=== PATIENT | female | born 1985 | race Two or more races ===

== ENCOUNTER 2016-06-26 10:25 | Emergency (ER) | payer MEDICAID, OTHER ==
[~2016-06-26] VITALS: Ht 149.9 cm; Wt 78.5 kg
[2016-06-26 11:28] LABS: Urine Bilirubin Negative (Negative); Urine Blood Negative /uL (Negative); Urine Color Yellow (Yellow); Urine Glucose Normal (Normal); Urine Ketone Negative (Negative); Urine Mucus FEW (None Seen); Urine Nitrite Negative (Negative); Urine RBC <1 /hpf (0 - 4); Urine Squamous Epithelial Cell MOD /hpf (<5); Urine Urobilinogen Normal (Negative); Urine pH 6.5 (5.0-8.0)
[2016-06-26 12:40] LABS: Basophils # (auto) 0.1 uL; Eosinophils # (auto) 0.2 uL; Hematocrit 41.8 % (36.0-46.0); Hemoglobin 13.7 g/dL (12.2-16.2); Lymphocytes # (auto) 1.8 uL; Lymphocytes % (auto) 18.5 % (10.0-50.0); Mean Corpuscular Hgb Conc. 32.7 g/dL (32.0-36.0); Mean Corpuscular Volume 88.6 fL (80.0-100.0); Mean Platelet Volume 8.2 fL (7.4-10.4); Monocytes # (auto) 0.5 uL; Monocytes % (auto) 5.1 % (0.0-12.0); Neutrophils # (auto) 7.1 uL; Neutrophils % (auto) 73.4 % (37.0-80.0); Platelet Count (auto) 389 10^3/uL (140-450); Red Cell Distribution Width 13.8 % (11.6-16.0); White Blood Cell 9.6 10^3/uL (4.4-10.8)
[2016-06-26 13:07] LABS: Albumin 3.8 g/dL (3.4-5.0); Anion Gap 10 (5-15); BUN/Creatinine Ratio 20.7; Blood Urea Nitrogen 18 mg/dL (7-18); Calcium 8.3 mg/dL (8.5-10.1); Carbon Dioxide 25 mmol/L (21-32); Chloride 107 mmol/L (98-107); GFR African American 97 mL/min; GFR Non-African American 80 mL/min; Glucose 92 mg/dL (74-106); Potassium 3.8 mmol/L (3.5-5.1); Salicylate 3.6 mg/dL (2.8-20.0); Sodium 142 mmol/L (136-145)
[2016-06-26 13:10] LABS: Alkaline Phosphatase 95 U/L (45-117); Aspartate Aminotransferase 15 U/L (15-37); Bilirubin, Total 0.2 mg/dL (0.2-1.0); Total Protein 7.7 g/dL (6.4-8.2)
[2016-06-26 13:15] LABS: Acetaminophen < 2.0 ug/mL (10-30)
[2016-06-26] MEDS ORDERED: SODIUM CHLORIDE 0.9% 1,000 ML IVB ONE (14:25)
[2016-06-26 14:48] VITALS: BP 139/93
== END 2016-06-26 15:09 | disposition home or self-care (01) ==
LOC: ER 10:29
DX: F60.0 Paranoid personality disorder (principal); F22 Delusional disorders
CPT/HCPCS: 36415; 80053; 80320; 80329; 81001; 81025; 85025; 96360; 99284; G0434; J7030

== ENCOUNTER 2016-07-16 11:30 | Emergency (ER) | payer MEDICAID ==
[~2016-07-16] VITALS: Ht 149.9 cm; Wt 94.3 kg
[2016-07-16 11:47] VITALS: BP 144/90
[2016-07-16] MEDS ORDERED: methylPREDNISolone SOD SUCC 125 MG/2 ML VL IM ONE (13:15)
[2016-07-16] MEDS ORDERED: IPRATROPIUM BROM 0.5 MG/2.5ML INH SOL NEB ONE (13:15)
[2016-07-16] MEDS ORDERED: ALBUTEROL SULF 2.5 MG/0.5ML(0.5%) NEB SOLN NEB ONE (13:15)
== END 2016-07-16 14:03 | disposition home or self-care (01) ==
LOC: ER 11:36
DX: J45.901 Unspecified asthma with (acute) exacerbation (principal)
CPT/HCPCS: 94640; 96372; 99283; J2930